=== PATIENT | female | born 2000 | race Caucasian/White ===

== ENCOUNTER 2018-05-10 18:20 | Emergency (ER) | END 2018-05-10 22:27 | disposition home or self-care (01) ==

== ENCOUNTER 2019-01-10 09:10 | Outpatient (CLI) | payer OTHER ==
[~2019-01-10] VITALS: Ht 165.1 cm; Wt 105.7 kg
[~2019-01-10 09:10] MED LIST: CEPH-443 PO; IBUP-1542 PO
[2019-01-10] MEDS ORDERED: PREN1TAB71 PO (09:29)
[2019-01-10 09:30] VITALS: Ht 165.1 cm; Wt 105.7 kg
[2019-01-10 09:31] VITALS: BP 118/75
[2019-01-10] MEDS ORDERED: CEFTRIAXONE 1 GM INJ IM ONE (12:30)
--- NOTE | 2019-01-10 13:09 | PN ---
Triage Information Date/Time Reason for visit: Patient had one elevated blood pressure in office, sent for further evaluation Weeks of Gestation 38 weeks /Para -0-0-1 Diabetes: none Hypertention: none Objective Vital Signs Date Temp Pulse Resp B/P (MAP) Pulse Ox O2 O2 Flow FiO2 Time Delivery Rate 01/10/19 98.0 118/75 09:31 (89) Heart Rate: 130's Contractions: None Results/Medications Result Diagram: 01/10/1992601/10/19926 Results 24 hrs Laboratory Tests Test 01/10/19 09:00 01/10/19 09:27 Urine Color YELLOW Urine Clarity CLOUDY A Urine pH 6.0 Urine Specific [place] 1.016 Urine Ketones NEGATIVE Urine Nitrite NEGATIVE Urine Bilirubin NEGATIVE Urine Urobilinogen NEGATIVE Urine Leukocyte Esterase 3+ H Urine Microscopic RBC 2 Urine Microscopic WBC 55 H Urine Squamous Epithelial Cells MANY A Urine Renal Epithelial Cells FEW A Urine Bacteria MODERATE Urine Hemoglobin NEGATIVE Urine Glucose NEGATIVE Urine Total Protein NEGATIVE White Blood Count 10.5 Red Blood Count 3.66 L Hemoglobin 11.5 L Hematocrit 34.2 L Mean Corpuscular Volume 93.4 Mean Corpuscular Hemoglobin 31.4 Mean Corpuscular Hemoglobin Concent 33.6 Red Cell Distribution Width 14.4 Platelet Count 291 Mean Platelet Volume 11.3 #H Immature Granulocytes % 0.300 Neutrophils % 75.0 H Lymphocytes % 18.3 Monocytes % 5.7 Eosinophils % 0.4 Basophils % 0.3 Nucleated Red Blood Cells % 0.0 Immature Granulocytes # 0.030 Neutrophils # 7.9 H Lymphocytes # 1.9 Monocytes # 0.6 Eosinophils # 0.0 Basophils # 0.0 Nucleated Red Blood Cells # 0.0 Sodium Level 138 Potassium Level 4.0 Chloride Level 109 Carbon Dioxide Level 21 Anion Gap 8 Blood Urea Nitrogen 11 Creatinine 0.52 Est Glomerular Filtrat Rate mL/min > 60 Glucose Level 100 Uric Acid 4.3 Calcium Level 9.1 Total Bilirubin 0.1 L Direct Bilirubin 0.00 Indirect Bilirubin 0.1 Aspartate Amino Transf (AST/SGOT) 19 Alanine Aminotransferase (ALT/SGPT) 16 Alkaline Phosphatase 283 H Total Protein 6.9 Albumin 3.4 Globulin 3.50 H Albumin/Globulin Ratio 0.97 Imaging Results FINDINGS: There is a single live intrauterine gestation. Cardiac activity is present with 129 beats per minute. There is a vertex presentation. The placenta is fundal. There is no evidence of placental abruption. There is a normal amount of amniotic fluid with an GINGER = 8.6 cm. Biophysical profile: movement 2/2 tone 2/2. breathing 2/2 GINGER 2/2 Total 04/26 RPTAT: AA . IMPRESSION: Normal biophysical profile. . .Tre Borges MD, MD Date Time Electronically viewed and signed by .Tre Borges MD, MD on 01/10/2019 10:02 Disposition: Discharge Assessment/Plan 18 years old 2 para 1-0-0-1 with single intrauterine at 38 weeks with FLORENCIO of 01/24/2018 seen for visit in office today was noted has one elevated blood pressure. She is sent to triage for further evaluation. She states good movement. She denies nausea, vomiting, shortness of breath, chest pain, headache, visual changes, vaginal bleeding or LOF. -FHR: No sign of metabolic acidosis- Category I -Contractions: None -Ultrasound performed: Normal GINGER, BPP 8 out of 8 -All blood pressures in triage where normal. PIH labs within normal limits -Symptoms and sign of labor, preeclampsia, kick count discussed with patient, she voiced understanding. All of her questions answered. -Patient was discharged home in stable condition with the appropriate discharge instructions provided. I would like patient to have close follow-up with her primary physician or outpatient clinic in 1-2 days or return to triage for worsening symptoms or any other urgent concerns. 2. UTI: Urinalysis with 55 white BC, 2 RBC and 3+ leukocyte esterase: Urine culture performed. Rocephin 1 g IM given. Prescription for Macrobid 100 mg every 12 hours for 7 days given. I strongly recommend patient have follow-up in 2 days with her primary OB to review with a urine culture and sensitivity. Patient expressed understanding CHRIS MIXON Jan 10, 2019 13:09
== END 2019-01-10 12:50 | disposition home or self-care (01) ==
LOC: OBT 09:10 → L-D 09:10 → OBT 12:50
PROVIDERS: ATTEND Obstetrics & Gynecology
DX: O26.893 Other specified pregnancy related conditions, third trimester (principal); R03.0 Elevated blood-pressure reading, without diagnosis of hypertension; O23.43 Unspecified infection of urinary tract in pregnancy, third trimester; Z3A.38 38 weeks gestation of pregnancy
CPT/HCPCS: 76818; 80053; 81001; 84560; 85025; 87086; J0696; 96372; G0463

== ENCOUNTER 2019-01-17 14:13 | Inpatient (IN) | payer OTHER ==
[~2019-01-17] VITALS: Ht 165.1 cm; Wt 106.8 kg
[~2019-01-17 14:13] MED LIST changes: -CEPH-443 PO; -IBUP-1542 PO; +PREN1TAB71 PO
[2019-01-17 14:27] VITALS: Ht 165.1 cm; Wt 106.8 kg
[2019-01-17 14:28] VITALS: BP 113/68; PULSE 111; RESP 18
--- NOTE | 2019-01-17 16:02 | TRIAGE ---
OB Triage Datetime Report Generated by CPN: 01/17/2019 16:01 Datetime: 01/17/2019 15:16 Vaginal Exam Dilatation (cms): 3.5 Effacement (%): 60 Station: -2 Exam By: toño Vaginal Bleeding: None Cervix, Consistency: Soft Cervix, Position: Midposition Presentation 'A': Cephalic Datetime: 01/17/2019 14:21 Assessment Type: Triage Maternal Assessment Level of Consciousness: Fully Conscious DTR's/Clonus: DTRs 2+; No Clonus Headache: Denies Blurred Vision: No Respiratory Effort: Unlabored; Regular Rhythm; Equal Expansion Breath Sounds, Left: Clear and Equal Breath Sounds, Right: Clear and Equal Nausea/Vomiting: Denies RUQ Epigastric Pain: Denies Lower Extremities Edema: None Degree: None Upper Extremities Edema: None Degree: None Facial Edema: None Fall Risk Assessment History of Falling: (0) No Secondary Diagnosis: (0) No Ambulatory Aid: (0) Bedrest/Nurse Assist IV Therapy: (0) No Gait: (0) Normal/Bedrest/Immobile Mental Status: (0) Oriented to Own Ability Fall Score: 0 Fall Risk Score Definition: No Risk: No action required Datetime: 01/17/2019 14:20 Time of Arrival: 01/17/2019 13:46 EGA: 39.0 Arrived By: Ambulatory Arrived From: Office Chief Complaint: PT. SENT INTO EVAL FOR C/O UC'S Movement: Present Contractions: Irregular Rupture of Membranes: Denies Vaginal Bleeding: Small Vaginal Discharge: Denies Recent Sexual Intercouse: Yes Abdominal Trauma: Not Applicable Patient Complaints: Contractions; Cramping; Back Pain Time Provider Notified: 01/17/2019 15:55 Provider Notified: ESHAGHIAN Initial Plan: EFM/SVE Datetime: 01/17/2019 14:19 Monitor Mode: External Monitor Mode: External US Datetime: 01/10/2019 11:46 Labor Evaluation Frequency: 0 Monitor Mode: External Pattern: Normal: <= 5 Contractions in 10 Minutes Resting Tone [place]: Relaxed Heart Rate FHR Baseline Rate: 125 Monitor Mode: External US Variability: Moderate 6-25 bpm Accelerations: 15X15 Decelerations: None Category: Category I Datetime: 01/10/2019 11:12 Stage of : OB Triage Labor Evaluation Frequency: 0 Monitor Mode: External Pattern: Normal: <= 5 Contractions in 10 Minutes Resting Tone [place]: Relaxed Heart Rate FHR Baseline Rate: 125 Monitor Mode: External US Variability: Moderate 6-25 bpm Accelerations: 15X15 Decelerations: None Category: Category I Datetime: 01/10/2019 10:06 Stage of : OB Triage Labor Evaluation Frequency: 0 Monitor Mode: External Pattern: Normal: <= 5 Contractions in 10 Minutes Resting Tone [place]: Relaxed Heart Rate FHR Baseline Rate: 135 Monitor Mode: External US Variability: Moderate 6-25 bpm Accelerations: 15X15 Decelerations: None Category: Category I Datetime: 01/10/2019 09:36 Labor Evaluation Frequency: 0 Pattern: Normal: <= 5 Contractions in 10 Minutes Resting Tone [place]: Relaxed Heart Rate FHR Baseline Rate: 135 Monitor Mode: External US Variability: Moderate 6-25 bpm Accelerations: 15X15 Decelerations: None Category: Category I Datetime: 01/10/2019 09:19 Time of Arrival: 01/10/2019 09:05 EGA: 38.0 Arrived By: Ambulatory Arrived From: Dr. Bai Chief Complaint: SENT FROM CLINIC FOR ELEVATED B/P Movement: Present Contractions: Irregular Rupture of Membranes: Denies Vaginal Bleeding: None Vaginal Discharge: Denies Recent Sexual Intercouse: Denies Abdominal Trauma: Not Applicable Patient Complaints: Contractions Time Provider Notified: 01/10/2019 09:05 Provider Notified: DR. MOSQUEDA Initial Plan: EFM Datetime: 01/10/2019 09:18 Stage of : OB Triage Assessment Type: Triage Maternal Assessment Level of Consciousness: Fully Conscious DTR's/Clonus: DTRs 2+; No Clonus Headache: Denies Blurred Vision: No Respiratory Effort: Unlabored; Regular Rhythm; Equal Expansion Breath Sounds, Left: Clear and Equal Breath Sounds, Right: Clear and Equal Nausea/Vomiting: Denies RUQ Epigastric Pain: Denies Lower Extremities Edema: None Degree: None Upper Extremities Edema: None Degree: None Facial Edema: None Temperature Route: Oral Fall Risk Assessment History of Falling: (0) No Secondary Diagnosis: (0) No Ambulatory Aid: (0) Bedrest/Nurse Assist IV Therapy: (0) No Gait: (0) Normal/Bedrest/Immobile Mental Status: (0) Oriented to Own Ability Fall Score: 0 Fall Risk Score Definition: No Risk: No action required Monitor Mode: External (Annotations: INIITIAL PLACEMENT ) Monitor Mode: External US (Annotations: INITIAL PLACEMENT ) Pain Assessment Pain Scale: 0 Pain Presence: None/Denies
[2019-01-17] MEDS ORDERED: BUTORPHANOL 2 MG INJ IV PRN (16:30)
[2019-01-17] MEDS ORDERED: MISOPROSTOL 200 MCG TAB PR PRN (16:30)
[2019-01-17] MEDS ORDERED: CARBOPROST 250 MCG INJ IM PRN (16:30)
[2019-01-17] MEDS ORDERED: OXYTOCIN 30 UNITS/LR 500 ML IV PRN (16:30)
[2019-01-17] MEDS ORDERED: LIDOCAINE 1% (MPF) 30 ML INJ INJ PRN (16:30)
[2019-01-17] MEDS ORDERED: IBUPROFEN 600 MG TAB PO PRN (16:30)
[2019-01-17] MEDS ORDERED: OXYTOCIN 30 UNITS/LR 500 ML IV SCH ×3 (16:30→20:30)
[2019-01-17] MEDS ORDERED: METHYLERGONOVINE 0.2 MG INJ IM PRN (16:30)
[2019-01-17] MEDS: LACTATED RINGER'S 1,000 ML IV SCH ×2 (17:11→23:10)
--- NOTE | 2019-01-17 23:04 | PREAC ---
Date/Time of Note Date/Time of Note DATE: 01/17/19 TIME: 23:03 Anesthesia Eval and Record Evaluation Time Pre-Procedure Interview DATE: 01/17/19 TIME: 23:03 Age 18 Sex female NPO: 8 hrs Preoperative diagnosis Planned procedure labor epidural Past Medical History Past Medical History: Includes GI: Morbid obesity Surgery & Anesthesia Issues No known issue Meds Anticoagulation: No Beta Hakeem within 24 hr: No Reason Beta Hakeem not given: Pt. not on B-Hakeem Reported Medications Vit No.130/Iron/FA ( Tablet) 1 Each Tablet, 1 EACH PO 01/10/19 Discontinued Scripts Ibuprofen* (Motrin*) 600 Mg Tab, 600 MG PO Q6, #30 TAB Prov:EDWINA DELEON 05/10/18 Cephalexin* (Keflex*) 500 Mg Capsule, 500 MG PO QID for 7 Days, CAP Prov:KEDAR CARRASCO PA-C 08/04/16 Current Medications Lactated Ringer's 1,000 ml @ 125 mls/hr Q8H IV Last administered on 01/17/19at 17:11; Admin Dose 125 MLS/HR; Start 01/17/19 at 16:05 Butorphanol Tartrate (Stadol) 2 mg Q2H PRN IV .PAIN; Start 01/17/19 at 16:30 Lidocaine (Xylocaine 1% (Mpf)) 30 ml ONCE PRN INJ .EPISIOTOMY; Start 01/17/19 at 16:30 Oxytocin/Lactated Ringer's 500 ml @ 500 mls/hr ONCE POST IV ; Start 01/17/19 at 16:30 Oxytocin/Lactated Ringer's 500 ml @ 125 mls/hr POST IV ; Start 01/17/19 at 16:30 Ibuprofen (Motrin) 600 mg ONCE PRN PO .PAIN 1-5; Start 01/17/19 at 16:30 Oxytocin/Lactated Ringer's 500 ml @ 0 mls/hr ONCE PRN IV .VAGINAL BLEEDING; Start 01/17/19 at 16:30 Methylergonovine Maleate (Methergine) 0.2 mg ONCE PRN IM .VAGINAL BLEEDING; Start 01/17/19 at 16:30 Carboprost Tromethamine (Hemabate) 250 mcg ONCE PRN IM .VAGINAL BLEEDING; Start 01/17/19 at 16:30 Misoprostol (Cytotec) 1,000 mcg ONCE PRN ID .VAGINAL BLEEDING; Start 01/17/19 at 16:30 Oxytocin/Lactated Ringer's 500 ml @ 0 mls/hr FOR AUGMENTATION IV Last administered on 01/17/19at 20:35; Admin Dose 1 MLS/HR; Start 01/17/19 at 20:30 Meds reviewed: Yes Allergies Coded Allergies: No Known Drug Allergy (Verified Allergy, Unknown, 01/10/19) Allergies Reviewed: Yes Labs/Studies Labs Reviewed: Reviewed by anesthesiologist Result Diagram: 01/17/19 1700 Laboratory Tests 01/17/19 17:00 Blood Bank Test 01/17/19 17:00 Antibody Screen NEGATIVE Blood Type A POSITIVE Rh Immune Globulin Candidate NO test: Positive Pre-procedure Exam Last vitals Vital Signs Date Temp Pulse Resp B/P (MAP) Pulse Ox O2 O2 Flow FiO2 Time Delivery Rate 01/17/19 98.5 111 18 113/68 Room Air 14:28 (83) Airway: Adequate mouth opening, Adequate thyromental dist Mallampati: Mallampati II Teeth: Normal Lung: Normal Heart: Normal ASA Physical Status ASA physical status: 2 Emergency: None Planned Anesthetic Neuraxial: Epidural Pre-operative Attestations Prior to commencing anesthesia and surgery, the patient was re-evaluated, there was verification of: *The patient's identity *The results of appropriate recent lab work and preoperative vital signs *The above evaluation not changing prior to induction *Anesthetic plan, risk benefits, alternative and complications discussed with patient/family; questions answered; patient/family understands, accepts and wishes to proceed. DONTE CASIANO January 17, 2019 23:04
[2019-01-17] MEDS ORDERED: NALOXONE (0.4 MG/ML) INJ IV PRN (23:30)
[2019-01-17] MEDS ORDERED: DIPHENHYDRAMINE 50 MG INJ IV PRN (23:30)
[2019-01-17] MEDS ORDERED: FENTAnyl 2MCG/ML-ROPIV 0.2% 100 ML BAG EPI SCH (23:30)
[2019-01-17] MEDS ORDERED: HYDROmorphONE 0.5 MG/0.5 ML SYG IV PRN ×2 (23:30)
[2019-01-17] MEDS ORDERED: KETOROLAC 30 MG INJ IV PRN (23:30)
[2019-01-17] MEDS ORDERED: ONDANSETRON 4 MG INJ IV PRN (23:30)
[2019-01-18] VITALS (11 sets, daily range): BP systolic 110–139; BP diastolic 59–88; PULSE 81–100; RESP 18
[2019-01-18] MEDS: LACTATED RINGER'S 1,000 ML IV SCH ×3 (01:40→14:05)
--- NOTE | 2019-01-18 02:53 | PREOPHP ---
DATE OF ADMISSION: 01/17/2019 HISTORY OF PRESENT ILLNESS: Ms. Isabella Smith is a 18-year-old 2, para 1, EDC 01/24/2019 i ntrauterine at 39 weeks gestational age, presented to triage earlier today complaining of c ontractions. She denies any vaginal bleeding or discharge. Her care took place at [facility]. PAST MEDICAL HISTORY: None. MEDICATIONS: vitamins. PAST SURGICAL HISTORY: None. OBSTETRICAL HISTORY: Vaginal delivery x1. GYNECOLOGIC HISTORY: Twelve, regular 3 to 4 days. Denies any sexually transmitted disease. Sexuall y active with 1 partner. SOCIAL HISTORY: Denies any smoking, drugs or alcohol. FAMILY HISTORY: None. REVIEW OF SYSTEMS: All within normal except history of present illness. PHYSICAL EXAMINATION: HEENT: Within normal. LUNGS: CTA bilateral. CARDIOVASCULAR: S1, S2, regular rhythm. ABDOMEN: Gravid, nontender. Negative CVA bilateral. EXTREMITIES: Negative edema. No calf tenderness. PELVIC: Vaginal exam 4, 80, -2 intact. heart tracing category 1. [place]: Regular contractions . ASSESSMENT: Intrauterine at 39 weeks gestational age in labor, admitted for labor augmenta tion. PLAN: Anticipate vaginal delivery. Dictated By: NOHELIA BAEZA/KYLEE Conf#: [id number] DID#: [id number]
[2019-01-18] MEDS ORDERED: OXYTOCIN 30 UNITS/LR 500 ML IV SCH (09:06)
--- NOTE | 2019-01-18 09:06 | LDN ---
Date/Time of Note Date/Time of Note DATE: 01/18/19 TIME: 09:04 Delivery Summary Weeks of Gestation 40 Placenta Delivered: Spontaneously Meconium: none Episiotomy: No Perineal laceration: 1 Laceration repair: 1st degree perineal laceration repair with 4-0 chromic Anesthesia type: Epidural Estimated blood loss: 250 Sponge & Needle done & correct: Yes All needle counts correct: Yes Any foreign bodies felt in the: No Delivery Information Sex Infant Sex: male Apgars 1 Minute: 9 5 Minute: 9 Suctioning Nose & mouth suctioned at rosie: No Delee suction performed: No Umbilical Cord Umbilical cord with: 3 Vessels Cord presentations: no nuchal cord Cord Blood was obtained: Yes NOHELIA MOSQUEDA MD January 18, 2019 09:06
[2019-01-18] MEDS ORDERED: OXYTOCIN 30 UNITS/LR 500 ML IV PRN (09:30)
[2019-01-18] MEDS ORDERED: ONDANSETRON 4 MG INJ IV PRN (09:30)
[2019-01-18] MEDS ORDERED: WITCH HAZEL/GLYCERIN PAD PR PRN (09:30)
[2019-01-18] MEDS ORDERED: OXYCODONE/ASPIRIN (4.88/325) TAB PO PRN ×2 (09:30)
[2019-01-18] MEDS ORDERED: BENZOCAINE 20% 56 ML SPRAY TOP PRN (09:30)
[2019-01-18] MEDS ORDERED: CARBOPROST 250 MCG INJ IM PRN (09:30)
[2019-01-18] MEDS ORDERED: METHYLERGONOVINE 0.2 MG INJ IM PRN (09:30)
[2019-01-18] MEDS ORDERED: NACL 0.9% 3 ML SYG IV SCH (09:30)
[2019-01-18] MEDS ORDERED: MISOPROSTOL 200 MCG TAB PR PRN (09:30)
[2019-01-18] MEDS ORDERED: LANOLIN HPA 1 PKT TOP PRN (09:30)
[2019-01-18] MEDS ORDERED: IBUPROFEN 600 MG TAB PO SCH (12:00)
[2019-01-18] MEDS: IBUPROFEN 600 MG TAB PO SCH ×2 (12:19→23:42)
[2019-01-18] MEDS: SENNA/DOCUSATE NA (8.6MG/50MG) TAB PO SCH (20:44)
[2019-01-19] VITALS: BP 114/76; PULSE 71; RESP 20
[2019-01-19 04:00] VITALS: BP 101/58; PULSE 78; RESP 19
[2019-01-19] MEDS: IBUPROFEN 600 MG TAB PO SCH (05:43)
[2019-01-19 08:00] VITALS: BP 96/61; PULSE 95; RESP 18
[2019-01-19] MEDS ORDERED: CEPH500C PO (08:07)
--- NOTE | 2019-01-19 08:07 | PD.PPDC ---
BAGGAGEMASTER Discharge Instruction Condition [id number] Patient Condition: [id number] Fair Diet [id number] Diet: Iucep1s Resume Regular Diet Activity/Restrictions [id number] Activity: [id number] Normal Activity May Shower [id number] Restrictions: Kxbth6d No Exercising No Lifting No Driving No Sexual Activity Nothing in the Vagina No [place] No Tampons, douche Follow-up Follow-up with Physician: 3, Week/Weeks Return to clinic for [id number] ELDERLY SITTER Instructions: [id number] Fever greater than 101 Chills Worsening abdominal pain Excessive Vaginal Bleeding More than 2 pads per hour Unable to tolerate diet [id number] OB Instructions: Clzlm1o Breast Tenderness Depression Blurried Vision Headache [id number] Surgical Instructions: [id number] Incisional Drainage Incisional Redness NOHELIA MOSQUEDA MD January 19, 2019 08:07
--- NOTE | 2019-01-19 08:16 | DS ---
Date/Time of Note Date/Time of Note DATE: 01/19/19 TIME: 08:15 Obstetrical Discharge Record Final Diagnosis Final Diagnosis: Term delivered Vaginal Delivery Obstetrical Delivery: Spontaneous, Laceration, Repaired Condition on Discharge Physical Assessment Last Vitals: stable afebrile Voiding: Yes Bowel Movement: Yes Breast: Soft, non-tender, Filling Fundus: Firm Abdomen and Incision: soft nt Calf Tenderness: No Patient Condition: Fair NOHELIA MOSQUEDA MD January 19, 2019 08:16
[2019-01-19] MEDS: SENNA/DOCUSATE NA (8.6MG/50MG) TAB PO SCH (09:00)
--- NOTE | 2019-01-19 11:27 | PAC ---
Date/Time of Note Date/Time of Note DATE: 01/19/19 TIME: 11:27 Post-Anesthesia Notes Post-Anesthesia Note Last documented vital signs Vital Signs Date Temp Pulse Resp B/P (MAP) Pulse Ox O2 O2 Flow FiO2 Time Delivery Rate 01/19/19 97.8 95 18 96/61 (73) Room Air 08:00 Activity: WNL Respiratory function: WNL Cardiovascular function: WNL Mental status: Baseline Pain reasonably controlled: Yes Hydration appropriate: Yes Nausea/Vomiting absent: Yes DONTE CASIANO January 19, 2019 11:27
[2019-01-19] MEDS ORDERED: CEPHALEXIN 500 MG CAP PO SCH ×2 (12:00→14:00)
[2019-01-20] MEDS ORDERED: MEASLES,MUMPS,RUBELLA VACCINE INJ SC* ONE (09:00)
--- NOTE | 2019-01-20 16:55 | DELSUM ---
Delivery Summary A-C Datetime Report Generated by CPN: 01/20/2019 16:54 DELIVERY PERSONNEL Bag Mender: Juan Antonio, Angélica MATERNAL INFORMATION Delivery Anesthesia: Epidural Medications in Delivery: Methergine 0.2 Delivery QBL (ml): 250 Placenta Cultured: No Maternal Complications: None LABOR SUMMARY EDC: 01/24/2019 00:00 No. Babies in Womb: 1 Attempted: No Labor Anesthesia: Epidural LABOR INFORMATION Reason for Induction: Not Applicable Onset of Labor: 01/17/2019 20:35 Complete Dilatation: 01/18/2019 07:25 Oxytocin: Augmentation Group B Beta Strep: Negative Antibiotics # of Doses: 0 Steroids Given: None Reason Steroids Not Administered: Not Applicable MEMBRANES Membranes Rupture Method: Artificial Rupture of Membranes: 01/18/2019 08:02 Length of Rupture (hr): 0.87 Amniotic Fluid Color: Clear Amniotic Fluid Amount: Small Amniotic Fluid Odor: None STAGES OF LABOR Stage 1 hr: 10 Stage 1 min: 50 Stage 2 hr: 1 Stage 2 min: 29 Stage 3 hr: 0 Stage 3 min: 1 Total Time in Labor hr: 12 Total Time in Labor min: 20 VAGINAL DELIVERY Episiotomy: None Laceration Extension: First Degree Laceration Type: Perineal Laceration Repair: Yes Initial Vag Sponge Count: 10 Final Vag Sponge Count: 10 Initial Vag Sharps Count: 2 Final Vag Sharps Count: 2 Sponge Count Correct: Yes Sharps Count Correct: Yes BABY A INFORMATION Infant Delivery Date/Time: 01/18/2019 08:54 Method of Delivery: Vaginal Born in Route : No : N/A Forceps: N/A Vacuum Extraction: N/A Shoulder Dystocia : N/A SHOULDER DYSTOCIA BABY A Delivery Date/Time: 01/18/2019 08:54 PRESENTATION/POSITION BABY A Presentation: Cephalic Cephalic Presentation: Vertex Vertex Position: Left Occipital Anterior Breech Presentation: N/A PLACENTA INFORMATION BABY A Placenta Delivery Time : 01/18/2019 08:55 Placenta Method of Delivery: Spontaneous Placenta Status: Delivered SCORES BABY A Heart Rate 1 min: >100 bpm Resp Effort 1 min: Good Cry Reflex Irritability 1 min: Cough/Sneeze/Pulls Away Muscle Tone 1 min: Active Motion Color 1 min: Body [place], Extremit Blue Resuscitation Effort 1 min: Tactile Stimulation SCORE 1 MIN: 9 Heart Rate 5 min: >100 bpm Resp Effort 5 min: Good Cry Reflex Irritability 5 min: Cough/Sneeze/Pulls Away Muscle Tone 5 min: Active Motion Color 5 min: Body [place], Extremit Blue Resuscitation Effort 5 min: Tactile Stimulation SCORE 5 MIN: 9 INFANT INFORMATION BABY A Gestational Age at Delivery: 39.1 Gestational Status: Full Term- 39- 40.6 Weeks Outcome : Liveborn Infant Condition : Stable Infant Sex: Male WEIGHT/LENGTH BABY A Infant Birthweight (gm): 3245 Infant Weight (lb): 7 Weight (oz): 2 Infant Length (in): 20.00 Infant Length (cm): 50.80 CORD INFORMATION BABY A No. Cord Vessels: 3 Nuchal Cord : N/A Suction: None ASSESSMENT BABY A Complications: None Physical Findings at Delivery: Within Normal Limits Respirations: Appears Normal Hotel Operations Manager/ALS Called : No Transferred To: Remains with Mother
== END 2019-01-19 16:00 | disposition home or self-care (01) | DRG 807 ==
LOC: L-D 14:13 → OBT 14:13 → L-D 15:55 → PP1 01-18 11:05
PROVIDERS: ADMIT Obstetrics & Gynecology; ATTEND Obstetrics & Gynecology
PROC: 10E0XZZ Delivery of Products of Conception, External Approach (ICD-10-PCS; principal; 2019-01-18)
PROC: 0HQ9XZZ Repair Perineum Skin, External Approach (ICD-10-PCS; 2019-01-18)
DX: O99.214 Obesity complicating childbirth (principal); Z37.0 Single live birth; E66.01 Morbid (severe) obesity due to excess calories; O70.0 First degree perineal laceration during delivery; Z3A.39 39 weeks gestation of pregnancy
CPT/HCPCS: 62322; 76815; 76818; 81001; 85025; 85610; 85730; 86592; 86850; 86900; 86901; 87086; 99464; G0463; J2210; J2590; J3010; J7120